=== PATIENT | female | born 1950 | race Caucasian/White ===

== ENCOUNTER 2017-09-30 09:46 | Outpatient (CLI) | payer MEDICARE ==
[2017-09-30 10:29] LABS: Hemoglobin 15.6 g/dL (12.0-16.0); Mean Corpuscular HGB CONC 32.9 g/dL (32.0-36.0); Mean Corpuscular Hemoglobin 32.7 pg (27.0-31.0); Mean Corpuscular Volume 99.6 fl (81.0-99.0); Mean Platelet Volume 5.8 fL (7.4-10.4); Platelet Count 482 thou/uL (130-400); RBC Distribution Width 12.6 % (11.5-14.5); Red Blood Cell (RBC) Count 4.78 mill/uL (4.20-5.40); White Blood Cell (WBC) Count 9.7 thou/uL (4.8-10.8)
== END 2017-09-30 09:47 | disposition home or self-care (01) ==
LOC: LABBT 09:46
PROVIDERS: ATTEND Orthopaedic Surgery
DX: Z01.812 Encounter for preprocedural laboratory examination (principal); G56.01 Carpal tunnel syndrome, right upper limb
CPT/HCPCS: 85027

== ENCOUNTER 2017-10-02 05:58 | Day surgery (SDC) | payer MEDICARE ==
[2017-09-30 09:57] VITALS: BMI 22.3
[2017-10-02] MEDS ORDERED: Midazolam HCl 2 mg/2 ml Vial ONE (06:38)
[2017-10-02] MEDS ORDERED: Fentanyl 250 MCG/5 ML VIAL ONE (06:38)
[2017-10-02] MEDS ORDERED: Lidocaine 1% w/Epinephrine 1:200K 30 ML VIAL ONE (06:45)
[2017-10-02] MEDS ORDERED: CEFAZOLIN/Water 2 GM/20 ML SYRINGE ONE (07:21)
--- NOTE | 2017-10-02 07:35 | HP ---
CHIEF COMPLAINT: Right wrist pain, numbness and tingling in the right hand. HISTORY OF PRESENT ILLNESS: Ms. Tavarez is a pleasant 67-year-old female who presented to me with rig ht hand pain rated 03/23. 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 She has worn night splints. The patient has no kno wn nerve conduction studies, no previous history of injections. PAST MEDICAL HISTORY: Hypothyroidism. PAST SURGICAL HISTORY: Appendectomy, tubal ligation. ALLERGIES: No known allergies. MEDICATIONS: Biotin, levothyroxine. SOCIAL HISTORY: The patient is a smoker, denies alcohol abuse. Currently, lives in [place]. REVIEW OF SYSTEMS: Noncontributory. PHYSICAL EXAMINATION: VITAL SIGNS: Stable. GENERAL: Alert and oriented female in no acute distress, resting comfortably in bed. HEENT: Normocephalic, atraumatic. Extraocular muscles intact. Glasses. LUNGS: Unlabored. HEART: Regular rate. ABDOMEN: Soft, nontender. EXTREMITIES: Right upper extremity, the patient has sensation decreased in the median nerve distribu tion. She has pain, has an equivocal Phalen's test. The patient has thenar atrophy. Brisk cap refi ll. IMPRESSION: Right carpal tunnel. PLAN: The patient will be taken for an open right carpal tunnel. She understands the risks and bene fits of surgery to include pain, scar, bleeding, infection, damage to vital structures, nerves, arter ies, tendon, need for further surgeries, failure of procedure despite surgical intervention. The pat ient understands the risks and benefits and elected to proceed.
[2017-10-02] MEDS ORDERED: Ondansetron HCl/PF 4 MG/2 ML Vial ONE (08:14)
[2017-10-02] MEDS ORDERED: PROPOFOL 200 MG/20 ML VIAL ONE (08:14)
[2017-10-02] MEDS ORDERED: Lidocaine 1% PF 5 ML VIAL ONE (08:14)
--- NOTE | 2017-10-02 09:29 | OP ---
DATE OF PROCEDURE: 10/02/2017 PREOPERATIVE DIAGNOSIS: Right carpal tunnel syndrome. POSTOPERATIVE DIAGNOSIS: Right carpal tunnel syndrome. PROCEDURE PERFORMED: Right open carpal tunnel release. STAFF: Jordan Ngo M.D. UNIVERSITY DEAN: None. ANESTHESIA: Stacy Ley. The patient received A LMA and 10 mL lidocaine subcu. ANTIBIOTICS: 2 grams Ancef. ESTIMATED BLOOD LOSS: 50 mL. TOURNIQUET TIME: 5 minutes at 250 mmHg. IMPLANTS: None. COMPLICATIONS: None. HISTORY OF PRESENT ILLNESS: Ms. Tavarez is a pleasant 67-year-old female with numbness, tingling to h er median distribution with some signs and symptoms of carpal tunnel. She had failed conservative me asures with a brace. The patient understood the risks and benefits of a right open release including pain, scar, bleeding, infection, damage to vital structures, decreased range of motion or strength, continued pain despite surgical intervention. She understood these risks and benefits and elected to proceed. PROCEDURE IN DETAIL: A timeout was performed designating the patient's right upper extremity as the operative site based on sight, consents and markings. After the patient received her antibiotics, th e tourniquet was brought up, it was left up for 5 minutes. I made an incision in line of the flexor crease, at the thenar crease near the fourth ray just proximal to Graham's cardinal line of the skin. I found the palmar fascia, it was dissected through, found the palmaris brevis, place my hemostat u nderneath the patient's transverse carpal ligament, transected the ligament sharply finding the nerve . I moved proximally to ensure there was complete release. I washed, let the tourniquet down after 5 minutes. After controlled bleeding, I then closed with 4-0 nylon, injected 10 mL of lidocaine 1% wit h epinephrine into the subcu as well as into the open space. She had a soft tissue dressing placed. The patient will be discharged home. She will follow up with me in about 7-10 days for suture remova l. The patient will begin range of motion as tolerated.
== END 2017-10-02 09:35 | disposition home or self-care (01) ==
LOC: SDC 05:58
PROVIDERS: ATTEND Orthopaedic Surgery
PROC: 01N50ZZ Release Median Nerve, Open Approach (ICD-10-PCS; principal; 2017-10-02)
DX: G56.01 Carpal tunnel syndrome, right upper limb (principal); E03.9 Hypothyroidism, unspecified; F17.200 Nicotine dependence, unspecified, uncomplicated; Z79.899 Other long term (current) drug therapy
CPT/HCPCS: J2001; J2250; J2405; J2704; J3010

== ENCOUNTER 2021-04-29 20:26 | Observation (INO) | payer MEDICARE ==
[2021-04-29 21:12] LABS: #Basophils 0.1 thou/uL (0.0-0.2); #Lymphocytes 0.9 thou/uL (1.20-3.40); #Monocytes 0.9 thou/uL (0.11-0.59); #Neutrophils 12.9 thou/uL (1.40-6.50); %Basophils 0.6 % (0.0-1.0); %Eosinophils 0.3 % (0.0-10.0); %Lymphocytes 6.2 % (21.0-51.0); %Neutrophils 86.9 % (42.0-75.0); Hemoglobin 14.2 g/dL (12.0-16.0); Mean Corpuscular HGB CONC 33.4 g/dL (32.0-36.0); Mean Corpuscular Hemoglobin 32.7 pg (27.0-31.0); Mean Corpuscular Volume 97.7 fL (78.0-98.0); Mean Platelet Volume 5.9 fL (7.4-10.4); Platelet Count 404 thou/uL (130-400); RBC Distribution Width 12.4 % (11.5-14.5); Red Blood Cell (RBC) Count 4.35 mill/uL (4.20-5.40); White Blood Cell (WBC) Count 14.9 thou/uL (4.8-10.8)
[2021-04-29 21:35] LABS: ALT (SGPT) 20 U/L (8-55); AST (SGOT) 26 U/L (5-34); Albumin 3.9 g/dL (3.4-4.8); Alkaline Phosphatase 110 U/L (40-110); Anion Gap 14 mmol/L (10-20); BUN (Urea Nitrogen) 10 mg/dL (9.8-20.1); Bilirubin, Total 0.3 mg/dL (0.2-1.2); Calc. Creatinine Clearance 0 mL/min (70-130); Calcium 9.2 mg/dL (7.8-10.44); Carbon Dioxide 25 mmol/L (23-31); Chloride 101 mmol/L (98-107); Glucose 121 mg/dL (80-115); Potassium 4.8 mmol/L (3.5-5.1); Protein, Total 6.9 g/dL (5.8-8.1); Sodium 135 mmol/L (136-145)
[2021-04-29] MEDS ORDERED: Ondansetron PF 4 MG/2 ML Vial ONE (21:50)
[2021-04-29 22:13] LABS: Bilirubin Negative (Negative); Blood, Urine Negative (Negative); Clarity Clear (Clear); Glucose, Urine (Dipstick) Normal (Negative); Ketone, Urine Negative (Negative); Leukocyte Negative Leu/uL (Negative); Nitrite Negative (Negative); Protein, Urine (Dipstick) Negative (Neg-Trace); Specific Gravity, Urine 1.012 (1.002-1.036); Urobilinogen Normal mg/dL (Less than 2); pH, Urine 7.5 (5.0-9.0)
[2021-04-29] MEDS ORDERED: Aspirin Chewable 81 MG TAB ONE (23:02)
[2021-04-30 01:45] VITALS: BMI 23.7
[2021-04-30] MEDS ORDERED: Ondansetron PF 4 MG/2 ML Vial IVP PRN (04:05)
[2021-04-30] MEDS ORDERED: Acetaminophen 325 MG TAB PO PRN (04:05)
[2021-04-30] MEDS ORDERED: Labetalol HCl 100 MG/20 ML VIAL SLOW IVP PRN (04:05)
[2021-04-30] MEDS ORDERED: hydrALAZINE 20 MG/ML VIAL SLOW IVP PRN (04:05)
[2021-04-30 06:01] LABS: Hemoglobin A1c 4.7 % (4.0-6.0)
[2021-04-30 06:02] LABS: #Basophils 0.1 thou/uL (0.0-0.2); #Eosinphils 0.1 thou/uL (0.0-0.7); #Lymphocytes 2.3 thou/uL (1.20-3.40); #Neutrophils 7.3 thou/uL (1.40-6.50); %Basophils 0.6 % (0.0-1.0); %Eosinophils 1.3 % (0.0-10.0); %Lymphocytes 21.3 % (21.0-51.0); %Monocytes 8.8 % (0.0-10.0); %Neutrophils 67.9 % (42.0-75.0); Hemoglobin 12.4 g/dL (12.0-16.0); Mean Corpuscular HGB CONC 33.6 g/dL (32.0-36.0); Mean Corpuscular Hemoglobin 32.9 pg (27.0-31.0); Platelet Count 360 thou/uL (130-400); RBC Distribution Width 12.5 % (11.5-14.5); Red Blood Cell (RBC) Count 3.76 mill/uL (4.20-5.40); White Blood Cell (WBC) Count 10.7 thou/uL (4.8-10.8)
[2021-04-30 06:21] LABS: Anion Gap 12 mmol/L (10-20); BUN (Urea Nitrogen) 7 mg/dL (9.8-20.1); Calc. Creatinine Clearance 73 mL/min (70-130); Calcium 8.7 mg/dL (7.8-10.44); Carbon Dioxide 24 mmol/L (23-31); Chloride 105 mmol/L (98-107); Cholesterol 169 mg/dl (< 200 Desired); Glucose 86 mg/dL (80-115); HDL Cholesterol 57 mg/dL (>60 Neg Risk); LDL Cholesterol, Calculated 99 mg/dL; Sodium 137 mmol/L (136-145); Triglycerides 64 mg/dL (Less than 150)
[2021-04-30] MEDS ORDERED: Aspirin 81 mg Enteric Coated Tablet PO SCH (08:15)
[2021-04-30] MEDS: Enoxaparin Sodium 40 MG/0.4 ML SYRINGE SC SCH (10:11)
[2021-04-30] MEDS: Aspirin 81 mg Enteric Coated Tablet PO SCH (10:19)
[2021-04-30 12:21] LABS: SARS-CoV-2 PCR by NAA Not Detected (NotDetected)
[2021-04-30] MEDS ORDERED: Atorvastatin Calcium 40 MG TAB PO SCH (21:00)
[2021-04-30] MEDS ORDERED: Pravastatin Sodium 40 MG TAB PO SCH (21:00)
[2021-04-30] MEDS ORDERED: Atorvastatin Calcium 10 MG TAB PO SCH ×2 (21:00)
[2021-05-01 07:44] VITALS: TEMP 98.3
[2021-05-01 08:50] LABS: #Basophils 0.1 thou/uL (0.0-0.2); #Eosinphils 0.5 thou/uL (0.0-0.7); #Lymphocytes 2.1 thou/uL (1.20-3.40); #Neutrophils 6.1 thou/uL (1.40-6.50); %Basophils 1.1 % (0.0-1.0); %Eosinophils 5.1 % (0.0-10.0); %Lymphocytes 21.8 % (21.0-51.0); %Monocytes 9.9 % (0.0-10.0); %Neutrophils 62.1 % (42.0-75.0); Hemoglobin 14.9 g/dL (12.0-16.0); Mean Corpuscular HGB CONC 33.8 g/dL (32.0-36.0); Mean Corpuscular Hemoglobin 33.2 pg (27.0-31.0); Mean Corpuscular Volume 98.2 fL (78.0-98.0); Platelet Count 411 thou/uL (130-400); RBC Distribution Width 12.5 % (11.5-14.5); Red Blood Cell (RBC) Count 4.49 mill/uL (4.20-5.40); White Blood Cell (WBC) Count 9.8 thou/uL (4.8-10.8)
[2021-05-01 09:13] LABS: Anion Gap 11 mmol/L (10-20); BUN (Urea Nitrogen) 9 mg/dL (9.8-20.1); Calc. Creatinine Clearance 61 mL/min (70-130); Calcium 9.3 mg/dL (7.8-10.44); Carbon Dioxide 27 mmol/L (23-31); Cardiac Risk 3.6 (Less than 4.5); Chloride 104 mmol/L (98-107); Cholesterol 213 mg/dl (< 200 Desired); Glucose 91 mg/dL (80-115); HDL Cholesterol 60 mg/dL (>60 Neg Risk); LDL Cholesterol, Calculated 134 mg/dL; Potassium 4.3 mmol/L (3.5-5.1); Sodium 138 mmol/L (136-145); Triglycerides 94 mg/dL (Less than 150)
[2021-05-01] MEDS: Aspirin 81 mg Enteric Coated Tablet PO SCH (10:02)
[2021-05-01] MEDS: Enoxaparin Sodium 40 MG/0.4 ML SYRINGE SC SCH (10:02)
[2021-05-01 11:00] VITALS: BP 160/72
[2021-05-03] MEDS ORDERED: FLU VACC QS2021-22(65YR UP)/PF 240 MCG/0.7 ML SYRINGE IM ONE (09:00)
== END 2021-05-01 10:17 | disposition home or self-care (01) ==
LOC: ERS 20:26 → 3SE 23:15
PROVIDERS: ADMIT Internal Medicine; ATTEND Physician Assistant Medical
DX: G45.9 Transient cerebral ischemic attack, unspecified (principal); I10 Essential (primary) hypertension; E03.9 Hypothyroidism, unspecified; D72.829 Elevated white blood cell count, unspecified; F17.210 Nicotine dependence, cigarettes, uncomplicated; Z79.82 Long term (current) use of aspirin; Z20.822 Contact with and (suspected) exposure to COVID-19
CPT/HCPCS: 70450; 70551; 71045; 80048 ×2; 80053; 80061 ×2; 81003; 83036; 83690; 84443; 84484; 85025 ×3; 93005; 93306; 93880; 96372; 96374; 96376; 99285; G0378 ×3; U0003; U0005; 36415; J1650; J2405

== ENCOUNTER 2023-06-18 11:50 | Emergency (ER) | payer MEDICARE, OTHER ==
[2023-06-18 12:21] LABS: #Basophils 0.1 thou/uL (0.0-0.2); #Eosinphils 0.6 thou/uL (0.0-0.7); #Monocytes 0.8 thou/uL (0.11-0.59); #Neutrophils 7.3 thou/uL (1.40-6.50); %Basophils 1.2 % (0.0-1.0); %Eosinophils 5.3 % (0.0-10.0); %Lymphocytes 15.8 % (21.0-51.0); %Monocytes 7.7 % (0.0-10.0); %Neutrophils 69.7 % (42.0-75.0); Hematocrit 42.8 % (36.0-47.0); Hemoglobin 14.5 g/dL (12.0-16.0); Mean Corpuscular HGB CONC 33.9 g/dL (32.0-36.0); Mean Corpuscular Hemoglobin 32.4 pg (27.0-31.0); Mean Corpuscular Volume 95.7 fl (78.0-98.0); Mean Platelet Volume 8.5 fL (7.4-10.4); Platelet Count 421 10x3/uL (130-400); RBC Distribution Width 13.7 % (11.5-14.5); Red Blood Cell (RBC) Count 4.47 mill/uL (4.20-5.40); White Blood Cell (WBC) Count 10.5 10x3/uL (4.8-10.8)
[2023-06-18 12:50] LABS: ALT (SGPT) 17 U/L (8-55); AST (SGOT) 25 U/L (5-34); Albumin 4.3 g/dL (3.4-4.8); Alkaline Phosphatase 102 U/L (40-110); Anion Gap 16 mmol/L (10-20); BUN (Urea Nitrogen) 9 mg/dL (9.8-20.1); Bilirubin, Total 0.5 mg/dL (0.2-1.2); Calc. Creatinine Clearance 0 mL/min (70-130); Calcium 9.7 mg/dL (7.8-10.44); Carbon Dioxide 22 mmol/L (23-31); Chloride 103 mmol/L (98-107); Estimated GFR 85; Globulin 3.2 g/dL (2.4-3.5); Glucose 77 mg/dL (83-110); Protein, Total 7.5 g/dL (5.8-8.1); Sodium 136 mmol/L (136-145)
== END 2023-06-18 13:37 | disposition home or self-care (01) ==
LOC: ERS 11:50
DX: R60.0 Localized edema (principal); I10 Essential (primary) hypertension; F17.210 Nicotine dependence, cigarettes, uncomplicated
CPT/HCPCS: 36415; 80053; 85025; 85379

== ENCOUNTER 2024-05-11 12:58 | Outpatient (CLI) | payer MEDICARE, OTHER | END 2024-05-11 12:59 | disposition home or self-care (01) | LOC: BICCT 12:58 | PROVIDERS: ATTEND Family Medicine | DX: Z12.2 Encounter for screening for malignant neoplasm of respiratory organs (principal); F17.210 Nicotine dependence, cigarettes, uncomplicated; E27.8 Other specified disorders of adrenal gland | CPT/HCPCS: 71271 ==